=== PATIENT | female | born 1995 | race Caucasian/White ===

== ENCOUNTER 2018-08-11 11:25 | Emergency (ER) | payer SELFPAY ==
[~2018-08-11] VITALS: Ht 167.6 cm; Wt 54.1 kg
[2018-08-11] MEDS ORDERED: SODIUM CHLORIDE FLUSH 10ML SYR IVF ONE ×2 (12:30→13:00)
[2018-08-11] MEDS ORDERED: KETOROLAC 30 MG/1 ML IVPush ONE (12:30)
[2018-08-11] MEDS ORDERED: ASPIRIN 81 MG TABLET CHEW PO ONE (12:30)
[2018-08-11] MEDS ORDERED: KETOROLAC 30 MG/1 ML IM ONE (12:30)
[2018-08-11 12:32] LABS: BASOPHILS # (AUTO) 0.02 x10^3/uL (0-0.1); BASOPHILS % (AUTO) 0 % (0-1); EOSINOPHILS # (AUTO) 0.04 x10^3/uL (0-0.4); EOSINOPHILS % (AUTO) 1 % (1-7); LYMPHOCYTES # (AUTO) 1.19 x10^3/uL (1-3.4); LYMPHOCYTES % (AUTO) 19 % (22-44); MD NO; MEAN CORPUSCULAR HEMOGLOBIN 32.8 pg (27.0-34.8); MEAN CORPUSCULAR HGB CONC 33.9 g/dL (32.4-35.8); MEAN CORPUSCULAR VOLUME 96.7 fL (80-100); MONOCYTES # (AUTO) 0.48 x10^3/uL (0.2-0.8); MONOCYTES % (AUTO) 8 % (2-9); NEUTROPHILS # (AUTO) 4.57 x10^3/uL (1.8-6.8); NEUTROPHILS % (AUTO) 73 % (42-75); PLATELET COUNT 255 x10^3/uL (130-400); RED BLOOD COUNT 4.72 x10^6/uL (3.82-5.3); RED CELL DISTRIBUTION WIDTH 13.2 % (9.6-15.2)
[2018-08-11] MEDS ORDERED: ASPIRIN 81 MG TABLET CHEW ONE (12:36)
[2018-08-11] MEDS ORDERED: KETOROLAC 30 MG/1 ML ONE (12:36)
[2018-08-11 12:43] LABS: ALBUMIN 4.4 g/dL (3.4-5.0); ANION GAP 8 mmol/L (5-15); CALCIUM 9.2 mg/dL (8.5-10.1); CHLORIDE 108 mmol/L (98-107)
[2018-08-11 12:46] LABS: TROPONIN I < 0.015 ng/mL (0.000-0.045)
[2018-08-11] MEDS ORDERED: LORazepam 2 MG/ML, 1ML ONE (13:05)
[2018-08-11] MEDS ORDERED: LORazepam 2 MG/ML, 1ML IVPush ONE (13:30)
[2018-08-11] MEDS ORDERED: LIDOCAINE-MPF 1%, 5ML ONE (13:35)
[2018-08-11] MEDS ORDERED: FENTANYL PF 100 MCG/2ML ONE (13:46)
[2018-08-11] MEDS ORDERED: OXYcodone/APAP 5/325MG TABLET PO ONE (14:30)
[2018-08-11] MEDS ORDERED: OXYcodone/APAP 5/325MG TABLET ONE (14:39)
[2018-08-11 15:53] VITALS: BP 105/59
== END 2018-08-11 16:31 | disposition home or self-care (01) ==
LOC: ED 14:24
DX: J93.83 Other pneumothorax (principal)
CPT/HCPCS: 32557; 36415; 71045; 71046; 80048; 82040; 83880; 84484; 84703; 85025; 93005; 96372; 96374; 99291; C1729; C1769; J1885; J2060; J3010

== ENCOUNTER 2018-08-12 19:58 | Emergency (ER) | payer SELFPAY ==
[~2018-08-12] VITALS: Ht 167.6 cm; Wt 52.0 kg
[2018-08-12] MEDS ORDERED: LORazepam 2 MG/ML, 1ML ONE (20:25)
[2018-08-12] MEDS ORDERED: SODIUM CHLORIDE FLUSH 10ML SYR IVF ONE (20:30)
[2018-08-12] MEDS ORDERED: LORazepam 2 MG/ML, 1ML IVPush ONE (20:30)
[2018-08-12 22:11] VITALS: BP 106/61
== END 2018-08-12 22:13 | disposition home or self-care (01) ==
LOC: ED 21:27
DX: J93.83 Other pneumothorax (principal)
CPT/HCPCS: 71045; 93005; 96374; 99283; J2060

== ENCOUNTER 2019-08-09 08:40 | Outpatient (CLI) | payer MEDICAID ==
[~2019-08-09] VITALS: Ht 170.2 cm; Wt 80.9 kg
[2019-08-09 08:58] VITALS: BP 101/67
[2019-08-09 10:29] LABS: AMPHETAMINE SCREEN, URINE Negative (Negative); BARBITURATE SCREEN, URINE Negative (Negative); BENZODIAZEPINE SCREEN, URINE Negative (Negative); CANNABINOID SCREEN, URINE Negative (Negative); COCAINE SCREEN, URINE Negative (Negative); METHADONE SCREEN, URINE Negative (Negative); OPIATE SCREEN, URINE Negative (Negative)
== END 2019-08-09 10:27 | disposition home or self-care (01) ==
LOC: LDOP 08:40
PROVIDERS: ATTEND Student in an Organized Health Care Education/Training Program
DX: O26.893 Other specified pregnancy related conditions, third trimester (principal); M54.9 Dorsalgia, unspecified; Z3A.36 36 weeks gestation of pregnancy
CPT/HCPCS: 59025; 80307; 81003; 99211; G0463

== ENCOUNTER 2019-08-25 05:42 | Inpatient (IN) | payer MEDICAID ==
[~2019-08-25] VITALS: Ht 167.6 cm; Wt 81.0 kg
[2019-08-25] MEDS ORDERED: OXYTOCIN 30U/ 0.9% NaCL 500ML 500 ML IV PRN (05:53)
[2019-08-25] MEDS ORDERED: OXYTOCIN 30U/ 0.9% NaCL 500ML 500 ML IV ONE (05:53)
[2019-08-25] MEDS ORDERED: TERBUTALINE 1 MG/ML, 1ML SQ PRN (06:00)
[2019-08-25] MEDS ORDERED: TERBUTALINE 1 MG/ML, 1ML IVPush PRN (06:00)
[2019-08-25] MEDS ORDERED: LIDOCAINE 1%, 20ML ONE (06:05)
[2019-08-25] MEDS ORDERED: NEWBORN KIT ONE (06:05)
[2019-08-25] MEDS ORDERED: MISOPROSTOL 200 MCG TABLET ONE (06:05)
[2019-08-25] MEDS ORDERED: OXYTOCIN 30U/ 0.9% NaCL 500ML 500 ML ONE (06:05)
[2019-08-25 06:16] VITALS: BP 116/74
[2019-08-25 06:22] LABS: BASOPHILS # (AUTO) 0.03 x10^3/uL (0-0.1); BASOPHILS % (AUTO) 0 % (0-1); EOSINOPHILS # (AUTO) 0.09 x10^3/uL (0-0.4); EOSINOPHILS % (AUTO) 1 % (1-7); LYMPHOCYTES # (AUTO) 2.23 x10^3/uL (1-3.4); LYMPHOCYTES % (AUTO) 26 % (22-44); MD NO; MEAN CORPUSCULAR HEMOGLOBIN 31.6 pg (27.0-34.8); MEAN CORPUSCULAR HGB CONC 33.8 g/dL (32.4-35.8); MEAN CORPUSCULAR VOLUME 93.5 fL (80-100); MEAN PLATELET VOLUME 9.8 fL (7.4-10.4); MONOCYTES # (AUTO) 0.69 x10^3/uL (0.2-0.8); MONOCYTES % (AUTO) 8 % (2-9); NEUTROPHILS # (AUTO) 5.64 x10^3/uL (1.8-6.8); NEUTROPHILS % (AUTO) 65 % (42-75); PLATELET COUNT 187 x10^3/uL (130-400); RED BLOOD COUNT 3.98 x10^6/uL (3.82-5.3); RED CELL DISTRIBUTION WIDTH 13.2 % (9.6-15.2)
[2019-08-25] MEDS ORDERED: MISOPROSTOL 25 MCG TABLET VG PRN (06:30)
[2019-08-25] MEDS ORDERED: MISOPROSTOL 25 MCG TABLET ONE (06:37)
[2019-08-25] MEDS: D5%-LACTATED RINGERS 1,000 ML IV SCH ×3 (06:41→22:41)
[2019-08-25] MEDS: LACTATED RINGERS 1,000 ML IV SCH ×4 (06:42→18:18)
[2019-08-25] MEDS ORDERED: FENTANYL/BUPIV./NS/PF 250 ML EPIDCONT SCH (06:52)
[2019-08-25] MEDS ORDERED: FENTANYL PF 500 MCG, BUPIVACAINE/PF 0.5%, 30ML 62.5 ML in SODIUM CHLORIDE 0.9% 177.5 ML EPIDCONT SCH (07:00)
[2019-08-25] MEDS ORDERED: SODIUM CHLORIDE FLUSH 10ML SYR IVF PRN (07:00)
[2019-08-25 08:46] LABS: BENZODIAZEPINE SCREEN, URINE Negative (Negative); CANNABINOID SCREEN, URINE Negative (Negative); METHADONE SCREEN, URINE Negative (Negative); OPIATE SCREEN, URINE Negative (Negative)
[2019-08-25 08:48] LABS: AMPHETAMINE SCREEN, URINE Negative (Negative); BARBITURATE SCREEN, URINE Negative (Negative); COCAINE SCREEN, URINE Negative (Negative)
[2019-08-25] MEDS ORDERED: LACTATED RINGERS 500 ML IVBOLUS ONE (10:00)
[2019-08-25] MEDS ORDERED: TERBUTALINE 1 MG/ML, 1ML ONE (12:15)
[2019-08-25] MEDS ORDERED: FENTANYL PF 100 MCG/2ML ONE ×2 (17:09→18:14)
[2019-08-25] MEDS ORDERED: FENTANYL PF 100 MCG/2ML IV PRN (17:30)
[2019-08-25] MEDS ORDERED: FENTANYL PF 100 MCG/2ML IVPush PRN (17:30)
[2019-08-25] MEDS ORDERED: BUPIVACAINE 0.25% ONE (18:14)
[2019-08-25 19:35] VITALS: BP 98/53
[2019-08-25] MEDS ORDERED: ONDANSETRON 2MG/ML, 2ML ONE (22:06)
[2019-08-26] MEDS: OXYTOCIN 30U/ 0.9% NaCL 500ML 500 ML IV SCH ×3 (00:49→20:49)
[2019-08-26] MEDS ORDERED: IBUPROFEN 600 MG TABLET ONE (00:59)
[2019-08-26] MEDS ORDERED: RHOGAM FROM BLOOD BANK 1 NOTE EA IM/IV ONE (01:00)
[2019-08-26] MEDS ORDERED: DIPH,PERTUSS(ACELL),TET VAC/PF NC IM-VACC PRN (01:00)
[2019-08-26] MEDS ORDERED: METHYLERGONOVINE 0.2 MG/ML IM PRN (01:00)
[2019-08-26] MEDS ORDERED: SIMETHICONE 80 MG CHEW TAB PO PRN (01:00)
[2019-08-26] MEDS ORDERED: CARBOPROST TROMETHAMINE 250 MCG/ML, 1ML IM PRN (01:00)
[2019-08-26] MEDS ORDERED: MEASLES,MUMPS&RUBELLA VACC/PF 0.5 ML SQ-VACC PRN (01:00)
[2019-08-26] MEDS ORDERED: ACETAMINOPHEN 325 MG TABLET PO PRN (01:00)
[2019-08-26] MEDS ORDERED: MISOPROSTOL 200 MCG TABLET PR PRN (01:00)
[2019-08-26] MEDS ORDERED: OXYcodone/APAP 5/325MG TABLET PO PRN ×2 (01:00)
[2019-08-26] MEDS: IBUPROFEN 600 MG TABLET PO PRN ×3 (01:03→16:09)
[2019-08-26 03:15] VITALS: BP 117/63
[2019-08-26 08:20] VITALS: BP 103/68
[2019-08-26 08:41] LABS: MEAN CORPUSCULAR HEMOGLOBIN 31.7 pg (27.0-34.8); MEAN CORPUSCULAR HGB CONC 33.2 g/dL (32.4-35.8); MEAN CORPUSCULAR VOLUME 95.4 fL (80-100); MEAN PLATELET VOLUME 9.5 fL (7.4-10.4); PLATELET COUNT 172 x10^3/uL (130-400); RED BLOOD COUNT 3.74 x10^6/uL (3.82-5.3); RED CELL DISTRIBUTION WIDTH 13.3 % (9.6-15.2)
[2019-08-26 09:04] LABS: BASOPHILS % (AUTO) 1 % (0-1); EOSINOPHILS # (AUTO) 0.02 x10^3/uL (0-0.4); EOSINOPHILS % (AUTO) 0 % (1-7); LYMPHOCYTES # (AUTO) 2.08 x10^3/uL (1-3.4); LYMPHOCYTES % (AUTO) 10 % (22-44); MD SCAN; MONOCYTES # (AUTO) 1.15 x10^3/uL (0.2-0.8); MONOCYTES % (AUTO) 5 % (2-9); NEUTROPHILS # (AUTO) 18.09 x10^3/uL (1.8-6.8); NEUTROPHILS % (AUTO) 84 % (42-75)
[2019-08-26] MEDS: DOCUSATE 100 MG CAPSULE PO PRN (09:11)
[2019-08-26] MEDS: PRENATAL VIT/IRON/FA 1 EACH TABLET PO SCH (09:11)
[2019-08-26 13:00] VITALS: BP 113/66
[2019-08-26] MEDS: LACTATED RINGERS 1,000 ML IV SCH ×2 (14:41→22:41)
[2019-08-26 16:11] VITALS: BP 112/70
[2019-08-26 19:30] VITALS: BP 112/70
[2019-08-27] MEDS: IBUPROFEN 600 MG TABLET PO PRN (01:05)
[2019-08-27] MEDS: DOCUSATE 100 MG CAPSULE PO PRN ×2 (01:05→09:45)
[2019-08-27] MEDS: LACTATED RINGERS 1,000 ML IV SCH (06:41)
[2019-08-27] MEDS: OXYTOCIN 30U/ 0.9% NaCL 500ML 500 ML IV SCH (06:49)
[2019-08-27 07:56] VITALS: BP 121/76
[2019-08-27] MEDS: PRENATAL VIT/IRON/FA 1 EACH TABLET PO SCH (09:45)
[2019-08-27] MEDS ORDERED: IBUP-1222 PO (11:12)
== END 2019-08-27 13:00 | disposition home or self-care (01) | DRG 807 ==
LOC: LDIP 05:42 → 2NW 08-26 02:51
PROVIDERS: ADMIT Student in an Organized Health Care Education/Training Program; ATTEND Student in an Organized Health Care Education/Training Program
PROC: 10E0XZZ Delivery of Products of Conception, External Approach (ICD-10-PCS; principal; 2019-08-25)
PROC: 3E0R3BZ Introduction of Anesthetic Agent into Spinal Canal, Percutaneous Approach (ICD-10-PCS; 2019-08-25)
PROC: 00HU33Z Insertion of Infusion Device into Spinal Canal, Percutaneous Approach (ICD-10-PCS; 2019-08-25)
DX: O66.0 Obstructed labor due to shoulder dystocia (principal); Z37.0 Single live birth; Z3A.39 39 weeks gestation of pregnancy; Z88.0 Allergy status to penicillin
CPT/HCPCS: 36415; 80307; 85025; 86592; 86850; 86900; G0378; J3010; J7120

== ENCOUNTER 2020-10-11 02:21 | Outpatient (CLI) | payer MEDICAID ==
[~2020-10-11] VITALS: Ht 170.2 cm; Wt 80.0 kg
[~2020-10-11 02:21] MED LIST: IBUP-1222 PO
[2020-10-11 02:45] LABS: MICROSCOPIC INDICATED
== END 2020-10-11 03:05 | disposition home or self-care (01) ==
LOC: LDOP 02:21
PROVIDERS: ATTEND Student in an Organized Health Care Education/Training Program
DX: O26.893 Other specified pregnancy related conditions, third trimester (principal); R10.9 Unspecified abdominal pain; Z3A.33 33 weeks gestation of pregnancy
CPT/HCPCS: 59025; 81001; 87086

== ENCOUNTER 2020-11-13 11:53 | Inpatient (IN) | payer MEDICAID ==
[~2020-11-13] VITALS: Ht 170.2 cm; Wt 82.0 kg
[2020-11-20] MEDS ORDERED: OXYTOCIN 30U/ 0.9% NaCL 500ML 500 ML ONE (07:26)
[2020-11-20] MEDS ORDERED: LACTATED RINGERS 1,000 ML IV SCH (07:30)
[2020-11-20] MEDS ORDERED: OXYTOCIN 30U/ 0.9% NaCL 500ML 500 ML IV ONE (07:30)
[2020-11-20] MEDS ORDERED: CALCIUM CARBONATE 500 MG TAB.CHEW PO PRN (07:30)
[2020-11-20] MEDS ORDERED: OXYTOCIN 30U/ 0.9% NaCL 500ML 500 ML IV PRN (07:30)
[2020-11-20] MEDS ORDERED: D5%-LACTATED RINGERS 1,000 ML IV SCH (07:30)
[2020-11-20] MEDS ORDERED: FENTANYL PF 100 MCG/2ML IV PRN (07:30)
[2020-11-20] MEDS ORDERED: TERBUTALINE 1 MG/ML, 1ML IVPush PRN (07:30)
[2020-11-20] MEDS ORDERED: ONDANSETRON 2MG/ML, 2ML IVPush PRN (07:30)
[2020-11-20] MEDS ORDERED: TERBUTALINE 1 MG/ML, 1ML SQ PRN (07:30)
[2020-11-20 07:40] LABS: BASOPHILS % (AUTO) 1 % (0-1); EOSINOPHILS % (AUTO) 1 % (1-7); LYMPHOCYTES % (AUTO) 26 % (22-44); MEAN CORPUSCULAR HEMOGLOBIN 29.8 pg (27.0-34.8); MEAN CORPUSCULAR HGB CONC 33.7 g/dL (32.4-35.8); MEAN PLATELET VOLUME 9.2 fL (7.4-10.4); MONOCYTES % (AUTO) 8 % (2-9); NEUTROPHILS % (AUTO) 65 % (42-75); PLATELET COUNT 198 x10^3/uL (130-400); RED BLOOD COUNT 3.57 x10^6/uL (3.82-5.3); RED CELL DISTRIBUTION WIDTH 14.9 % (9.6-15.2)
[2020-11-20] MEDS ORDERED: NEWBORN KIT ONE (07:52)
[2020-11-20 08:07] LABS: MD SCAN
[2020-11-20] MEDS: FENTANYL PF 100 MCG/2ML IVPush PRN (14:18)
[2020-11-20] MEDS ORDERED: BUPIVACAINE 0.25% ONE (14:49)
[2020-11-20] MEDS ORDERED: FENTANYL/BUPIV./NS/PF 250 ML EPIDCONT ONE (14:49)
[2020-11-20] MEDS ORDERED: EPHEDRINE 50 MG/ML, 1ML IVPush PRN (15:00)
[2020-11-20] MEDS ORDERED: LACTATED RINGERS 1,000 ML IVBOLUS PRN (15:00)
[2020-11-20] MEDS: LACTATED RINGERS 1,000 ML IV SCH ×2 (15:00→23:00)
[2020-11-20] MEDS ORDERED: NALOXONE 0.4 MG/ML, 1ML IVPush PRN (15:00)
[2020-11-20] MEDS ORDERED: FENTANYL/BUPIV./NS/PF 250 ML EPIDCONT SCH (15:00)
[2020-11-20] MEDS: OXYTOCIN 30U/ 0.9% NaCL 500ML 500 ML IV SCH (20:00)
[2020-11-20] MEDS ORDERED: ACETAMINOPHEN 325 MG TABLET PO PRN (20:00)
[2020-11-20] MEDS ORDERED: ONDANSETRON 2MG/ML, 2ML IV PRN (20:00)
[2020-11-20] MEDS ORDERED: HYDROcodone/APAP 5/325 TABLET PO PRN (20:00)
[2020-11-20] MEDS ORDERED: RHOGAM FROM BLOOD BANK 1 NOTE EA IM/IV ONE (20:00)
[2020-11-20] MEDS ORDERED: IBUPROFEN 200 MG TABLET PO PRN (20:00)
[2020-11-20] MEDS ORDERED: OXYcodone/APAP 5/325MG TABLET PO PRN (20:00)
[2020-11-20] MEDS ORDERED: MISOPROSTOL 200 MCG TABLET PR PRN (20:00)
[2020-11-20] MEDS ORDERED: IBUPROFEN 800 MG TABLET PO PRN (20:00)
[2020-11-20] MEDS ORDERED: BISACODYL 10 MG SUPP PR PRN (20:00)
[2020-11-20 23:07] VITALS: BP 99/64
[2020-11-21] MEDS: FENTANYL PF 100 MCG/2ML IVPush PRN (00:03)
[2020-11-21 03:01] VITALS: BP 105/65
[2020-11-21 04:13] LABS: BASOPHILS % (AUTO) 0 % (0-1); EOSINOPHILS % (AUTO) 0 % (1-7); LYMPHOCYTES % (AUTO) 12 % (22-44); MD NO; MEAN CORPUSCULAR HEMOGLOBIN 29.7 pg (27.0-34.8); MEAN CORPUSCULAR HGB CONC 33.3 g/dL (32.4-35.8); MEAN PLATELET VOLUME 9.6 fL (7.4-10.4); MONOCYTES % (AUTO) 8 % (2-9); NEUTROPHILS % (AUTO) 80 % (42-75); PLATELET COUNT 186 x10^3/uL (130-400); RED BLOOD COUNT 3.55 x10^6/uL (3.82-5.3)
[2020-11-21] MEDS: OXYTOCIN 30U/ 0.9% NaCL 500ML 500 ML IV SCH ×2 (05:25→16:00)
[2020-11-21] MEDS: LACTATED RINGERS 1,000 ML IV SCH ×2 (05:58→15:00)
[2020-11-21 07:40] VITALS: BP 112/75
[2020-11-21] MEDS ORDERED: PRENATAL VIT/IRON/FA 1 EACH TABLET PO SCH (09:00)
[2020-11-21] MEDS: DOCUSATE 100 MG CAPSULE PO PRN ×2 (09:04→17:01)
[2020-11-21] MEDS: IBUPROFEN 600 MG TABLET PO PRN ×2 (09:04→17:02)
[2020-11-21] MEDS ORDERED: IBUP-1223 PO (09:54)
[2020-11-21] MEDS ORDERED: DOCU-131 PO (09:54)
[2020-11-21 13:00] VITALS: BP 96/55
== END 2020-11-21 18:20 | disposition home or self-care (01) | DRG 807 ==
LOC: LDIP 11-20 06:39 → 2NW 11-20 23:00
PROVIDERS: ADMIT Student in an Organized Health Care Education/Training Program; ATTEND Student in an Organized Health Care Education/Training Program
PROC: 10E0XZZ Delivery of Products of Conception, External Approach (ICD-10-PCS; principal; 2020-11-20)
PROC: 0KQM0ZZ Repair Perineum Muscle, Open Approach (ICD-10-PCS; 2020-11-20)
PROC: 3E0R3BZ Introduction of Anesthetic Agent into Spinal Canal, Percutaneous Approach (ICD-10-PCS; 2020-11-20)
PROC: 00HU33Z Insertion of Infusion Device into Spinal Canal, Percutaneous Approach (ICD-10-PCS; 2020-11-20)
DX: O62.3 Precipitate labor (principal); Z37.0 Single live birth; O69.81X0 Labor and delivery complicated by cord around neck, without compression, not applicable or unspecified; O70.1 Second degree perineal laceration during delivery; Z20.822 Contact with and (suspected) exposure to COVID-19; Z87.891 Personal history of nicotine dependence; Z88.0 Allergy status to penicillin; Z3A.39 39 weeks gestation of pregnancy
CPT/HCPCS: 36415; 85025; 86592; 86850; 86900; 87635; G0378; J3010; J2590; J7120